=== PATIENT | female | born 1950 ===

== ENCOUNTER 2020-12-17 23:38 | Inpatient (IN) | payer MEDICARE ==
--- NOTE | 2020-12-18 09:58 | Consultation ---
History of Present Illness - Reason for Consult Consult date: 12/18/20 Reason for consult: Bipolar - History of Present Psychiatric Illness Per Admission Note: Patient was in the hospital in October and November at [facility]. She has had multiple psych admissions and continues to argue with her daughter and threaten suicide. This time she also threatened to kill her daughter. Fela Jeffries is a 70y/o female patient who was admitted into the tim-psych unit for suicidal thoughts and homicidal threats toward her daughter. During my evaluation with the patient, she is delusional. She is also labile. She endorses suicidal thoughts without a plan. She shows me healing cuts on both wrists she says where she attempted suicide about a month ago. The patient denies homicidal thoughts. She says her daughter and Kevin Peck are the reason she is admitted into the hospital. She says "she gets on the phone with him and he dominates my daughter's life." She is initially pleasant, but becomes angry talking about this, and says "I don't care if he's rich and famous." The patient then starts sobbing and says "I hurt my family. I won't do this again." She denies any illicit drug use, alcohol or nicotine. She says she has a history of bipolar and anxiety, although she didn't seem quite sure of it. PAST PSYCHIATRIC HISTORY Diagnoses: Bipolar, anxiety Suicide attempts or Self-harm behavior: Yes Prior psychiatric hospitalizations: Yes Substance Abuse history: Denies Previous psychiatric medications tried: Several Outpatient treatment: Yes PAST MEDICAL HISTORY: None reported Family Psychiatric History: None reported or documented SOCIAL HISTORY Marital Status: Living Arrangements: with daughter Employment Status: retired Access to guns/weapons: Denies Education: High school History of Abuse: Denies Legal History: None reported REVIEW OF SYSTEMS Constitutional: Negative for weight loss ENT: Negative for stridor Respiratory: Negative for cough or hemoptysis All other systems reviewed and are negative MENTAL STATUS EXAMINATION General Appearance and Behavior: Age appropriate, good hygiene, wearing appropriate clothes, calm and cooperative, labile Cooperation: cooperative Psychomotor Behavior: Psychomotor normal Mood: depressed Affect and affective range: labile, tearful Thought Process: circumstantial Thought Content: delusions, SI Speech: Normal rate, volume and rhythm Suicidal Ideation: Yes Homicidal Ideation: Denies HI Hallucinations: Denies Delusions: Yes Impulse Control: Impaired Insight and Judgment: Limited insight and judgment Memory: Limited Attention: Limited Orientation: Alert, oriented Assessment and Plan (1)Bipolar Disorder TREATMENT PLAN Patient admitted for inpatient psychiatric evaluation, medication adjustment and close monitoring The patient's behavior, mood, sleep and appetite will be closely monitored. Patient enrolled in individual and group therapeutic sessions and encouraged to attend. Patient provided with a safe and structured environment. Patient's physical health needs will be addressed by the Hospitalist. Hospitalist Consulted Labs including CBC, CMP, Lipid profile and Hemoglobin A1C levels ordered for baseline reference Restarted home meds Decreased Lorazepam 0.5mg daily Hold Olanzapine, to prevent polypharm Social Assessment will be completed and the Marketing Performance Analyst will work with patient and family to ensure a suitable and safe disposition Medication adjustment will be made as clinically indicated Usual Wellness Shinto/Preservation: - Start Trazodone 50 mg po QHS & 50 mg po QHS PRN between 10 PM & 2 AM for insomnia - Start Melatonin 5 mg po QHS to promote circadian rhythm - Start [place]-3 for brain health, reduce impulsivity, and as adjunctive treatment for mood disorder, continue upon discharge given overall benefits. - Start B1 prophylaxis with 200 mg po for 5 days The patient agreed on the treatment plan, understood the risk, benefit, alternative treatment, potential consequence of no treatment, and gave informed consent. Estimated days: 6 Post hospital care: primary care provider, psychiatric provider Medications and Allergies Allergies Allergy/AdvReac Type Severity Reaction Status Date / Time amitriptyline Allergy Anaphylaxis Verified 12/18/20 02:11 doxepin Allergy Anaphylaxis Verified 12/18/20 02:10 aspirin AdvReac Bleeding Verified 12/18/20 02:12 codeine AdvReac Bleeding Verified 12/18/20 02:12 Home Medications Medication Instructions Recorded Confirmed Last Taken Type Acetaminophen [Tylenol] 650 mg PO Q8HR PRN 12/18/20 12/18/20 Unknown History Depakote ER 250 mg PO BID 12/18/20 12/18/20 Unknown History FLUoxetine HCL [PROzac] 40 mg PO BID 12/18/20 12/18/20 Unknown History LORazepam [Lorazepam] 1 mg PO DAILY 12/18/20 12/18/20 Unknown History Levothyroxine [Synthroid] 25 mcg PO QAM 12/18/20 12/18/20 Unknown History OLANZapine [Olanzapine] 10 mg PO HS 12/18/20 12/18/20 Unknown History Pantoprazole [Protonix] 40 mg PO QDAY 12/18/20 12/18/20 Unknown History Phenytoin Sodium Extended 300 mg PO TID 12/18/20 12/18/20 Unknown History Potassium Chloride [K-Dur] 20 meq PO QDAY 12/18/20 12/18/20 Unknown History Rosuvastatin Calcium [Crestor] 20 mg PO HS 12/18/20 12/18/20 Unknown History SUMAtriptan SUCCINATE [Imitrex] 100 mg PO DAILY PRN 12/18/20 12/18/20 Unknown History Ziprasidone [Geodon] 40 mg PO BID 12/18/20 12/18/20 Unknown History carvediloL [Coreg] 6.25 mg PO BID 12/18/20 12/18/20 Unknown History donepeziL [Aricept] 10 mg PO HS 12/18/20 12/18/20 Unknown History hydroCHLOROthiazide 12.5 mg PO DAILY 12/18/20 12/18/20 Unknown History [Hydrochlorothiazide] lisinopriL [Lisinopril] 20 mg PO DAILY 12/18/20 12/18/20 Unknown History Mental Status Exam - Vital signs Last Vital Signs Temp 98.1 F 12/18/20 02:15 Pulse 73 12/18/20 02:15 Resp 20 12/18/20 02:15 BP 153/118 12/18/20 02:15 Pulse Ox 95 12/18/20 02:15 Results All other labs normal.
[2020-12-18] MEDS ORDERED: NON-FORMULARY EACH (Fluoxetine Hcl [Prozac] 40 MG Capsule) PO SCH (10:15)
[2020-12-18 10:31] LABS: Basophils % (Auto) 0.5 % (0.0-1.8); Eosinophils # (Auto) 0.1 K/mm3 (0.0-0.4); Eosinophils % (Auto) 2.5 % (0.0-4.3); Hematocrit 38.1 % (30.3-42.9); Lymphocytes # (Auto) 1.3 K/mm3 (1.2-5.4); Lymphocytes % (Auto) 27.3 % (13.4-35.0); Mean Corpuscular HGB Conc 34 % (30-34); Mean Corpuscular Volume 98 fl (79-97); Monocytes # (Auto) 0.7 K/mm3 (0.0-0.8); Monocytes % (Auto) 15.2 % (0.0-7.3); Platelet Count 152 K/mm3 (140-440); Red Blood Count 3.91 M/mm3 (3.65-5.03); Red Cell Distribution Width 13.1 % (13.2-15.2)
[2020-12-18] MEDS ORDERED: ACETAMINOPHEN 325 MG TAB PO PRN (10:59)
[2020-12-18] MEDS ORDERED: SUMAtriptan SUCCINATE 50 MG TAB PO PRN (11:00)
[2020-12-18] MEDS ORDERED: carvediloL 6.25 MG TAB PO SCH (11:00)
[2020-12-18 11:11] LABS: Alanine Aminotransferase 9 units/L (7-56); Albumin 4.2 g/dL (3.9-5); BUN/Creatinine Ratio 20; Blood Urea Nitrogen 12 mg/dL (7-17); Calcium 10.1 mg/dL (8.4-10.2); HDL Cholesterol 88 mg/dL (40-59); Hemolysis Index 10; LDL Cholesterol,Direct 85 mg/dL (50-130)
[2020-12-18] MEDS: DIVALPROEX ER 250 MG TAB PO SCH ×2 (13:02→21:24)
[2020-12-18] MEDS: ZIPRASIDONE 40 MG CAP PO SCH ×2 (13:02→21:24)
[2020-12-18] MEDS: FLUoxetine 20 MG CAP PO SCH ×2 (13:03→21:24)
[2020-12-18] MEDS: PANTOPRAZOLE 40 MG TAB PO SCH (13:04)
[2020-12-18] MEDS: POTASSIUM CHLORIDE ER 20 MEQ TAB PO SCH (13:04)
[2020-12-18] MEDS: carvediloL 3.125 MG TAB PO SCH ×2 (13:06→21:24)
[2020-12-18] MEDS: LISINOPRIL 20 MG TAB PO SCH (13:07)
[2020-12-18] MEDS: hydroCHLOROthiazide 12.5 MG CAP PO SCH (13:14)
[2020-12-18] MEDS ORDERED: PHENYTOIN SODIUM 300 MG PO SCH (14:00)
[2020-12-18] MEDS: PHENYTOIN 100 MG CAPSULE.ER PO SCH ×2 (14:45→21:23)
[2020-12-18] MEDS: DONEPEZIL 10 MG TAB PO SCH (21:23)
[2020-12-18] MEDS ORDERED: NON-FORMULARY EACH (Rosuvastatin Calcium [Crestor] 20 MG Tablet) PO SCH (22:00)
[2020-12-18] MEDS ORDERED: LORazepam 0.5 MG TAB PO SCH (22:00)
[2020-12-19] MEDS: PHENYTOIN 100 MG CAPSULE.ER PO SCH ×3 (05:25→21:14)
[2020-12-19] MEDS: LEVOTHYROXINE 25 MCG TAB PO SCH (05:25)
--- NOTE | 2020-12-19 09:50 | Progress Note ---
Subjective Date of service: 12/19/20 Principal diagnosis: Bipolar Disorder Subjective Comment: The patient was seen today. She appears to be delusional. She says she's doing good and slept good. The patient starts laughing out and says she spoke with her daughter yesterday who "talked too long." She says "my daughter is obsessed with Kevin Garcia. The patient says "he's worth 200 million dollars." She then laughs again. She denies SI/HI or hallucinations. REVIEW OF SYSTEMS Constitutional: Negative for weight loss ENT: Negative for stridor Respiratory: Negative for cough or hemoptysis All other systems reviewed and are negative MENTAL STATUS EXAMINATION General Appearance and Behavior: Age appropriate, good hygiene, wearing appropriate clothes, calm and cooperative, labile Cooperation: cooperative Psychomotor Behavior: Psychomotor normal Mood: depressed Affect and affective range: labile, tearful Thought Process: circumstantial Thought Content: delusions, SI Speech: Normal rate, volume and rhythm Suicidal Ideation: Yes Homicidal Ideation: Denies HI Hallucinations: Denies Delusions: Yes Impulse Control: Impaired Insight and Judgment: Limited insight and judgment Memory: Limited Attention: Limited Orientation: Alert, oriented Assessment and Plan (1)Bipolar Disorder TREATMENT PLAN Patient admitted for inpatient psychiatric evaluation, medication adjustment and close monitoring The patient's behavior, mood, sleep and appetite will be closely monitored. Patient enrolled in individual and group therapeutic sessions and encouraged to attend. Patient provided with a safe and structured environment. Patient's physical health needs will be addressed by the Hospitalist. Hospitalist Consulted Labs including CBC, CMP, Lipid profile and Hemoglobin A1C levels ordered for baseline reference Continue meds Social Assessment will be completed and the Heel Emery Buffer will work with patient and family to ensure a suitable and safe disposition Medication adjustment will be made as clinically indicated Usual Wellness Sikhism/Preservation: - Start Trazodone 50 mg po QHS & 50 mg po QHS PRN between 10 PM & 2 AM for inso mnia - Start Melatonin 5 mg po QHS to promote circadian rhythm - Start [place]-3 for brain health, reduce impulsivity, and as adjunctive treatment for mood disorder, continue upon discharge given overall benefits. - Start B1 prophylaxis with 200 mg po for 5 days The patient agreed on the treatment plan, understood the risk, benefit, alternative treatment, potential consequence of no treatment, and gave informed consent. Estimated days: 6 Post hospital care: primary care provider, psychiatric provider Medications and Allergies Allergies Allergy/AdvReac Type Severity Reaction Status Date / Time amitriptyline Allergy Anaphylaxis Verified 12/18/20 02:11 doxepin Allergy Anaphylaxis Verified 12/18/20 02:10 aspirin AdvReac Bleeding Verified 12/18/20 02:12 codeine AdvReac Bleeding Verified 12/18/20 02:12 Home Medications Medication Instructions Recorded Confirmed Last Taken Type Acetaminophen [Tylenol] 650 mg PO Q8HR PRN 12/18/20 12/18/20 Unknown History Depakote ER 250 mg PO BID 12/18/20 12/18/20 Unknown History FLUoxetine HCL [PROzac] 40 mg PO BID 12/18/20 12/18/20 Unknown History LORazepam [Lorazepam] 1 mg PO DAILY 12/18/20 12/18/20 Unknown History Levothyroxine [Synthroid] 25 mcg PO QAM 12/18/20 12/18/20 Unknown History OLANZapine [Olanzapine] 10 mg PO HS 12/18/20 12/18/20 Unknown History Pantoprazole [Protonix] 40 mg PO QDAY 12/18/20 12/18/20 Unknown History Phenytoin Sodium Extended 300 mg PO TID 12/18/20 12/18/20 Unknown History Potassium Chloride [K-Dur] 20 meq PO QDAY 12/18/20 12/18/20 Unknown History Rosuvastatin Calcium [Crestor] 20 mg PO HS 12/18/20 12/18/20 Unknown History SUMAtriptan SUCCINATE [Imitrex] 100 mg PO DAILY PRN 12/18/20 12/18/20 Unknown History Ziprasidone [Geodon] 40 mg PO BID 12/18/20 12/18/20 Unknown History carvediloL [Coreg] 6.25 mg PO BID 12/18/20 12/18/20 Unknown History donepeziL [Aricept] 10 mg PO HS 12/18/20 12/18/20 Unknown History hydroCHLOROthiazide 12.5 mg PO DAILY 12/18/20 12/18/20 Unknown History [Hydrochlorothiazide] lisinopriL [Lisinopril] 20 mg PO DAILY 12/18/20 12/18/20 Unknown History Active Meds: Active Medications Acetaminophen (Acetaminophen 325 Mg Tab) 650 mg PO Q8H PRN PRN Reason: Pain, Moderate Atorvastatin Calcium (Atorvastatin 40 Mg Tab) 40 mg PO QHS [facility] Last Admin: 12/18/20 21:24 Dose: 40 mg Documented by: Carvedilol (Carvedilol 6.25 Mg Tab) 6.25 mg PO BID [facility] Divalproex Sodium (Divalproex Er 250 Mg Tab) 250 mg PO BID [facility] Last Admin: 12/18/20 21:24 Dose: 250 mg Documented by: Donepezil HCl (Donepezil 10 Mg Tab) 10 mg PO HS [facility] Last Admin: 12/18/20 21:23 Dose: 10 mg Documented by: Fluoxetine HCl (Fluoxetine 20 Mg Cap) 40 mg PO BID [facility] Last Admin: 12/18/20 21:24 Dose: 40 mg Documented by: Hydrochlorothiazide (Hydrochlorothiazide 12.5 Mg Cap) 12.5 mg PO DAILY [facility] Last Admin: 12/18/20 13:14 Dose: 12.5 mg Documented by: Levothyroxine Sodium (Levothyroxine 25 Mcg Tab) 25 mcg PO QAM@0600 [facility] Last Admin: 12/19/20 05:25 Dose: 25 mcg Documented by: Lisinopril (Lisinopril 20 Mg Tab) 20 mg PO DAILY [facility] Last Admin: 12/18/20 13:07 Dose: Not Given Documented by: Lorazepam (Lorazepam 0.5 Mg Tab) 0.5 mg PO DAILY [facility] Pantoprazole Sodium (Pantoprazole 40 Mg Tab) 40 mg PO QDAY [facility] Last Admin: 12/18/20 13:04 Dose: 40 mg Documented by: Phenytoin (Phenytoin 100 Mg Capsule.Er) 300 mg PO Q8HR [facility] Last Admin: 12/19/20 05:25 Dose: 300 mg Documented by: Potassium Chloride (Potassium Chloride Er 20 Meq Tab) 20 meq PO QDAY [facility] Last Admin: 12/18/20 13:04 Dose: 20 meq Documented by: Sumatriptan Succinate (Sumatriptan Succinate 50 Mg Tab) 100 mg PO DAILY PRN PRN Reason: Headache Ziprasidone (Ziprasidone 40 Mg Cap) 40 mg PO BID [facility] Last Admin: 12/18/20 21:24 Dose: 40 mg Documented by: Results - Results Labs/Vitals: Laboratory Last Values WBC 4.8 K/mm3 (4.5-11.0) 12/18/20 10:00 RBC 3.91 M/mm3 (3.65-5.03) 12/18/20 10:00 Hgb 13.0 gm/dl (10.1-14.3) 12/18/20 10:00 Hct 38.1 % (30.3-42.9) 12/18/20 10:00 MCV 98 fl (79-97) H 12/18/20 10:00 MCH 33 pg (28-32) H 12/18/20 10:00 MCHC 34 % (30-34) 12/18/20 10:00 RDW 13.1 % (13.2-15.2) L 12/18/20 10:00 Plt Count 152 K/mm3 (140-440) 12/18/20 10:00 Lymph % (Auto) 27.3 % (13.4-35.0) 12/18/20 10:00 [place] % (Auto) 15.2 % (0.0-7.3) H 12/18/20 10:00 Eos % (Auto) 2.5 % (0.0-4.3) 12/18/20 10:00 Baso % (Auto) 0.5 % (0.0-1.8) 12/18/20 10:00 Lymph # (Auto) 1.3 K/mm3 (1.2-5.4) 12/18/20 10:00 [place] # (Auto) 0.7 K/mm3 (0.0-0.8) 12/18/20 10:00 Eos # (Auto) 0.1 K/mm3 (0.0-0.4) 12/18/20 10:00 Baso # (Auto) 0.0 K/mm3 (0.0-0.1) 12/18/20 10:00 Seg Neutrophils % 54.5 % (40.0-70.0) 12/18/20 10:00 Seg Neutrophils # 2.6 K/mm3 (1.8-7.7) 12/18/20 10:00 Sodium 135 mmol/L (137-145) L 12/18/20 10:00 Potassium 3.6 mmol/L (3.6-5.0) 12/18/20 10:00 Chloride 97.6 mmol/L (98-107) L 12/18/20 10:00 Carbon Dioxide 26 mmol/L (22-30) 12/18/20 10:00 Anion Gap 15 mmol/L 12/18/20 10:00 BUN 12 mg/dL (7-17) 12/18/20 10:00 Creatinine 0.6 mg/dL (0.6-1.2) 12/18/20 10:00 Estimated GFR > 60 ml/min 12/18/20 10:00 BUN/Creatinine Ratio 20 % 12/18/20 10:00 Glucose 108 mg/dL (65-100) H 12/18/20 10:00 POC Glucose 97 mg/dL (70-105) 12/18/20 16:11 Hemoglobin A1c 5.0 % (4-6) 12/18/20 10:00 Calcium 10.1 mg/dL (8.4-10.2) 12/18/20 10:00 Total Bilirubin 0.30 mg/dL (0.1-1.2) 12/18/20 10:00 AST 18 units/L (5-40) 12/18/20 10:00 ALT 9 units/L (7-56) 12/18/20 10:00 Alkaline Phosphatase 83 units/L (35-129) 12/18/20 10:00 Total Protein 7.4 g/dL (6.3-8.2) 12/18/20 10:00 Albumin 4.2 g/dL (3.9-5) 12/18/20 10:00 Albumin/Globulin Ratio 1.3 % 12/18/20 10:00 Triglycerides 90 mg/dL (2-149) 12/18/20 10:00 Cholesterol 176 mg/dL (50-199) 12/18/20 10:00 LDL Cholesterol Direct 85 mg/dL (50-130) 12/18/20 10:00 HDL Cholesterol 88 mg/dL (40-59) H 12/18/20 10:00 Cholesterol/HDL Ratio 2.00 % 12/18/20 10:00 TSH 1.440 mlU/mL (0.270-4.200) 12/18/20 10:00 Phenytoin 24.2 ug/mL (10.0-20.0) H 12/18/20 10:00 Valproic Acid 10.7 ug/mL (50-100) L 12/18/20 10:00 Last Vital Signs Temp 97.7 F 12/18/20 18:48 Pulse 80 09/11/21 21:24 Resp 16 12/18/20 18:48 BP 130/61 12/18/20 21:24 Pulse Ox 99 12/18/20 18:48
[2020-12-19] MEDS ORDERED: LORazepam 0.5 MG TAB PO SCH (10:00)
[2020-12-19] MEDS ORDERED: carvediloL 6.25 MG TAB PO SCH (10:00)
[2020-12-19] MEDS: PANTOPRAZOLE 40 MG TAB PO SCH (10:09)
[2020-12-19] MEDS: DIVALPROEX ER 250 MG TAB PO SCH ×2 (10:09→21:13)
[2020-12-19] MEDS: hydroCHLOROthiazide 12.5 MG CAP PO SCH (10:09)
[2020-12-19] MEDS: FLUoxetine 20 MG CAP PO SCH ×2 (10:10→21:13)
[2020-12-19] MEDS: ZIPRASIDONE 40 MG CAP PO SCH ×2 (10:10→21:13)
[2020-12-19] MEDS: POTASSIUM CHLORIDE ER 20 MEQ TAB PO SCH (10:10)
[2020-12-19] MEDS: LISINOPRIL 20 MG TAB PO SCH (10:10)
[2020-12-19] MEDS: LORazepam 0.5 MG TAB PO SCH (14:15)
[2020-12-19] MEDS: carvediloL 3.125 MG TAB PO SCH ×2 (14:25→21:14)
--- NOTE | 2020-12-19 15:13 | Consultation ---
History of Present Illness - Reason for Consult Consult date: 12/19/20 Medical management - History of Present Illness Fela Jeffries is a 70y/o female with history of bipolar disorder, hypertension hyperlipidemia, GERD and hypothyroidism who was admitted into the tim-psych unit for suicidal thoughts and homicidal threats toward her daughter. Medicine service has been requested to further evaluate the patient for any medical needs. Patient currently denies any chest pain short of breath abdominal pain nausea vomiting diarrhea or any lower extremity swelling. Her only complaint is that she has a cracking lips and requesting some Vaseline. PAST PSYCHIATRIC HISTORY: Bipolar, anxiety PAST MEDICAL HISTORY: Hypertension hyperlipidemia, hypothyroidism and GERD Family Psychiatric History: None reported or documented SOCIAL HISTORY: , living with daughter REVIEW OF SYSTEMS Constitutional: no fever, no chills, no weight loss Ears, eyes, nose, mouth and throat: no nasal congestion, no nasal discharge, no sinus pressure, no vision change, no red eye. Neck: No neck pain or rigidity. Cardiovascular: No chest pain, no orthopnea, no palpitations, no leg swelling Respiratory: No shortness of breath, no cough, no congestion, no wheezing Gastrointestinal: no abdominal pain, no nausea, no vomiting Genitourinary : no dysuria, no hematuria Musculoskeletal: no joint swelling or muscle ache Integumentary: no rash, no pruritis Neurological: no parathesias, no numbness, no tingling Endocrine: no cold or heat intolerance, no polyuria or polydipsia Hematologic/Lymphatic: no easy bruising, no easy bleeding, no gland swelling Allergic/Immunologic: no urticaria, no angioedema. Physical exam: GENERAL: well-developed and morbidly obese white female lying on bed appeared to be in no discomfort. HEENT: Normocephalic. Atraumatic. No conjunctival congestion or icterus. Patient has very dry cracking lips. NECK: Supple. Trachea midline. CHEST/LUNGS: Clear to auscultated bilaterally, breathing nonlabored. No wheezes crackles or rhonchi. HEART/CARDIOVASCULAR: Regular in rate and rhythm. S1 and S2 positive. ABDOMEN: Abdomen is soft, nontender. Patient has normal bowel sounds. SKIN: There is no rash. Warm and dry. NEURO: No focal motor deficit. Follows command. MUSCULOSKELETAL: No joint effusion or tenderness. EXTRIMITY: No edema, no cyanosis or clubbing. PSYCH: Cooperative. Assessment and plan: Bipolar Disorder, management per primary Other chronic medical issues: Hypertension Hyperlipidemia Hypothyroidism GERD Morbid obesity -Continue current home regimen, continue to monitor vitals and follow clinically We will also order Vaseline for dry lips. Diet and exercise recommendation as outpatient when clinically more appropriate Please call us back with any questions or concerns Medications and Allergies Allergies Allergy/AdvReac Type Severity Reaction Status Date / Time amitriptyline Allergy Anaphylaxis Verified 12/18/20 02:11 doxepin Allergy Anaphylaxis Verified 12/18/20 02:10 aspirin AdvReac Bleeding Verified 12/18/20 02:12 codeine AdvReac Bleeding Verified 12/18/20 02:12 Home Medications Medication Instructions Recorded Confirmed Last Taken Type Acetaminophen [Tylenol] 650 mg PO Q8HR PRN 12/18/20 12/18/20 Unknown History Depakote ER 250 mg PO BID 12/18/20 12/18/20 Unknown History FLUoxetine HCL [PROzac] 40 mg PO BID 12/18/20 12/18/20 Unknown History LORazepam [Lorazepam] 1 mg PO DAILY 12/18/20 12/18/20 Unknown History Levothyroxine [Synthroid] 25 mcg PO QAM 12/18/20 12/18/20 Unknown History OLANZapine [Olanzapine] 10 mg PO HS 12/18/20 12/18/20 Unknown History Pantoprazole [Protonix] 40 mg PO QDAY 12/18/20 12/18/20 Unknown History Phenytoin Sodium Extended 300 mg PO TID 12/18/20 12/18/20 Unknown History Potassium Chloride [K-Dur] 20 meq PO QDAY 12/18/20 12/18/20 Unknown History Rosuvastatin Calcium [Crestor] 20 mg PO HS 12/18/20 12/18/20 Unknown History SUMAtriptan SUCCINATE [Imitrex] 100 mg PO DAILY PRN 12/18/20 12/18/20 Unknown History Ziprasidone [Geodon] 40 mg PO BID 12/18/20 12/18/20 Unknown History carvediloL [Coreg] 6.25 mg PO BID 12/18/20 12/18/20 Unknown History donepeziL [Aricept] 10 mg PO HS 12/18/20 12/18/20 Unknown History hydroCHLOROthiazide 12.5 mg PO DAILY 12/18/20 12/18/20 Unknown History [Hydrochlorothiazide] lisinopriL [Lisinopril] 20 mg PO DAILY 12/18/20 12/18/20 Unknown History Active Meds: Active Medications Acetaminophen (Acetaminophen 325 Mg Tab) 650 mg PO Q8H PRN PRN Reason: Pain, Moderate Atorvastatin Calcium (Atorvastatin 40 Mg Tab) 40 mg PO QHS [facility] Last Admin: 12/18/20 21:24 Dose: 40 mg Documented by: Carvedilol (Carvedilol 3.125 Mg Tab) 6.25 mg PO BID [facility] Last Admin: 12/19/20 14:25 Dose: 6.25 mg Documented by: Divalproex Sodium (Divalproex Er 250 Mg Tab) 250 mg PO BID [facility] Last Admin: 12/19/20 10:09 Dose: 250 mg Documented by: Donepezil HCl (Donepezil 10 Mg Tab) 10 mg PO HS [facility] Last Admin: 12/18/20 21:23 Dose: 10 mg Documented by: Fluoxetine HCl (Fluoxetine 20 Mg Cap) 40 mg PO BID [facility] Last Admin: 12/19/20 10:10 Dose: 40 mg Documented by: Hydrochlorothiazide (Hydrochlorothiazide 12.5 Mg Cap) 12.5 mg PO DAILY [facility] Last Admin: 12/19/20 10:09 Dose: 12.5 mg Documented by: Levothyroxine Sodium (Levothyroxine 25 Mcg Tab) 25 mcg PO QAM@0600 [facility] Last Admin: 12/19/20 05:25 Dose: 25 mcg Documented by: Lisinopril (Lisinopril 20 Mg Tab) 20 mg PO DAILY [facility] Last Admin: 12/19/20 10:10 Dose: 20 mg Documented by: Lorazepam (Lorazepam 0.5 Mg Tab) 0.5 mg PO 1500 [facility] Last Admin: 12/19/20 14:15 Dose: 0.5 mg Documented by: Pantoprazole Sodium (Pantoprazole 40 Mg Tab) 40 mg PO QDAY [facility] Last Admin: 12/19/20 10:09 Dose: 40 mg Documented by: Phenytoin (Phenytoin 100 Mg Capsule.Er) 300 mg PO Q8HR [facility] Last Admin: 12/19/20 14:14 Dose: 300 mg Documented by: Potassium Chloride (Potassium Chloride Er 20 Meq Tab) 20 meq PO QDAY [facility] Last Admin: 12/19/20 10:10 Dose: 20 meq Documented by: Sumatriptan Succinate (Sumatriptan Succinate 50 Mg Tab) 100 mg PO DAILY PRN PRN Reason: Headache Ziprasidone (Ziprasidone 40 Mg Cap) 40 mg PO BID [facility] Last Admin: 12/19/20 10:10 Dose: 40 mg Documented by: Exam - Constitutional Vitals: Temp Pulse Resp BP Pulse Ox 98.6 F 70 18 130/61 98 12/19/20 07:21 12/19/20 14:25 12/19/20 07:21 12/19/20 14:25 12/19/20 07:21 Results - Labs CBC & Chem 7: 12/18/20 10:00 12/18/20 10:00
[2020-12-19] MEDS: DONEPEZIL 10 MG TAB PO SCH (21:13)
[2020-12-19] MEDS: LIP THERAPY VASELINE TP PRN (21:30)
[2020-12-20] MEDS: PHENYTOIN 100 MG CAPSULE.ER PO SCH ×3 (05:52→21:17)
[2020-12-20] MEDS: LEVOTHYROXINE 25 MCG TAB PO SCH (05:52)
--- NOTE | 2020-12-20 08:15 | Progress Note ---
Subjective Date of service: 12/20/20 Principal diagnosis: Bipolar Disorder Subjective Comment: Per Nurse Note: Pt. is still delusional about her daughter being obsessed about Kevin Garcia. Sometimes pt. is sad, but on the most part happy today. Pt. is unsteady on her feet, but she made a few attempts to ambulate without help. Pt. reminded to call for help when she wants to stand up. She c/o cracked lips, Dr. Gonsales was here to see her and she said she will put in order for something for her lips The patient was seen today. The patient is laughing and says she had a "wet night." She says "I was peeing all night." She then laughs out loud. The patient says she's have this problem and home. She denies SI/HI. She says "I'm happy to be alive." The patient denies hallucinations of any kind. Reason for continued inpatient treatment: The nurse reports the patient being delusional and obsessive at times. Also the patient has labile moods between sad and happy. REVIEW OF SYSTEMS Constitutional: Negative for weight loss ENT: Negative for stridor Respiratory: Negative for cough or hemoptysis All other systems reviewed and are negative MENTAL STATUS EXAMINATION General Appearance and Behavior: Age appropriate, good hygiene, wearing appropriate clothes, calm and cooperative, labile Cooperation: cooperative Psychomotor Behavior: Psychomotor normal Mood: depressed Affect and affective range: labile, tearful Thought Process: circumstantial Thought Content: delusions Speech: Normal rate, volume and rhythm Suicidal Ideation: Denies Homicidal Ideation: Denies HI Hallucinations: Denies Delusions: Yes Impulse Control: Impaired Insight and Judgment: Limited insight and judgment Memory: Limited Attention: Limited Orientation: Alert, oriented Assessment and Plan (1)Bipolar Disorder TREATMENT PLAN Patient admitted for inpatient psychiatric evaluation, medication adjustment and close monitoring The patient's behavior, mood, sleep and appetite will be closely monitored. Patient enrolled in individual and group therapeutic sessions and encouraged to attend. Patient provided with a safe and structured environment. Patient's physical health needs will be addressed by the Hospitalist. Hospitalist Consulted Labs including CBC, CMP, Lipid profile and Hemoglobin A1C levels ordered for baseline reference Valproic level Social Assessment will be completed and the Social Media Specialist will work with patient and family to ensure a suitable and safe disposition Medication adjustment will be made as clinically indicated Increase Depakote DR 250mg TID Usual Wellness [facility]/Preservation: - Start Trazodone 50 mg po QHS & 50 mg po QHS PRN between 10 PM & 2 AM for insomnia - Start Melatonin 5 mg po QHS to promote circadian rhythm - Start [place]-3 for brain health, reduce impulsivity, and as adjunctive treatment for mood disorder, continue upon discharge given overall benefits. - Start B1 prophylaxis with 200 mg po for 5 days The patient agreed on the treatment plan, understood the risk, benefit, alternative treatment, potential consequence of no treatment, and gave informed consent. Estimated days: 4 Post hospital care: primary care provider, psychiatric provider Medications and Allergies Allergies Allergy/AdvReac Type Severity Reaction Status Date / Time amitriptyline Allergy Anaphylaxis Verified 12/18/20 02:11 doxepin Allergy Anaphylaxis Verified 12/18/20 02:10 aspirin AdvReac Bleeding Verified 12/18/20 02:12 codeine AdvReac Bleeding Verified 12/18/20 02:12 Home Medications Medication Instructions Recorded Confirmed Last Taken Type Acetaminophen [Tylenol] 650 mg PO Q8HR PRN 12/18/20 12/18/20 Unknown History Depakote ER 250 mg PO BID 12/18/20 12/18/20 Unknown History FLUoxetine HCL [PROzac] 40 mg PO BID 12/18/20 12/18/20 Unknown History LORazepam [Lorazepam] 1 mg PO DAILY 12/18/20 12/18/20 Unknown History Levothyroxine [Synthroid] 25 mcg PO QAM 12/18/20 12/18/20 Unknown History OLANZapine [Olanzapine] 10 mg PO HS 12/18/20 12/18/20 Unknown History Pantoprazole [Protonix] 40 mg PO QDAY 12/18/20 12/18/20 Unknown History Phenytoin Sodium Extended 300 mg PO TID 12/18/20 12/18/20 Unknown History Potassium Chloride [K-Dur] 20 meq PO QDAY 12/18/20 12/18/20 Unknown History Rosuvastatin Calcium [Crestor] 20 mg PO HS 12/18/20 12/18/20 Unknown History SUMAtriptan SUCCINATE [Imitrex] 100 mg PO DAILY PRN 12/18/20 12/18/20 Unknown H istory Ziprasidone [Geodon] 40 mg PO BID 12/18/20 12/18/20 Unknown History carvediloL [Coreg] 6.25 mg PO BID 12/18/20 12/18/20 Unknown History donepeziL [Aricept] 10 mg PO HS 12/18/20 12/18/20 Unknown History hydroCHLOROthiazide 12.5 mg PO DAILY 12/18/20 12/18/20 Unknown History [Hydrochlorothiazide] lisinopriL [Lisinopril] 20 mg PO DAILY 12/18/20 12/18/20 Unknown History Active Meds: Active Medications Acetaminophen (Acetaminophen 325 Mg Tab) 650 mg PO Q8H PRN PRN Reason: Pain, Moderate Atorvastatin Calcium (Atorvastatin 40 Mg Tab) 40 mg PO QHS [facility] Last Admin: 12/19/20 21:13 Dose: 40 mg Documented by: Carvedilol (Carvedilol 3.125 Mg Tab) 6.25 mg PO BID [facility] Last Admin: 12/19/20 21:14 Dose: 6.25 mg Documented by: Divalproex Sodium (Divalproex Er 250 Mg Tab) 250 mg PO BID [facility] Last Admin: 12/19/20 21:13 Dose: 250 mg Documented by: Donepezil HCl (Donepezil 10 Mg Tab) 10 mg PO [facility] Last Admin: 12/19/20 21:13 Dose: 10 mg Documented by: Fluoxetine HCl (Fluoxetine 20 Mg Cap) 40 mg PO BID [facility] Last Admin: 12/19/20 21:13 Dose: 40 mg Documented by: Hydrochlorothiazide (Hydrochlorothiazide 12.5 Mg Cap) 12.5 mg PO DAILY [facility] Last Admin: 12/19/20 10:09 Dose: 12.5 mg Documented by: Hydrophilic Ointment (Lip Therapy Vaseline) 1 applic TP DIRECT PRN PRN Reason: Dry Lips Last Admin: 12/19/20 21:30 Dose: 1 applic Documented by: Levothyroxine Sodium (Levothyroxine 25 Mcg Tab) 25 mcg PO QAM@0600 [facility] Last Admin: 12/20/20 05:52 Dose: 25 mcg Documented by: Lisinopril (Lisinopril 20 Mg Tab) 20 mg PO DAILY [facility] Last Admin: 12/19/20 10:10 Dose: 20 mg Documented by: Lorazepam (Lorazepam 0.5 Mg Tab) 0.5 mg PO 1500 [facility] Last Admin: 12/19/20 14:15 Dose: 0.5 mg Documented by: Pantoprazole Sodium (Pantoprazole 40 Mg Tab) 40 mg PO QDAY [facility] Last Admin: 12/19/20 10:09 Dose: 40 mg Documented by: Phenytoin (Phenytoin 100 Mg Capsule.Er) 300 mg PO Q8HR [facility] Last Admin: 12/20/20 05:52 Dose: 300 mg Documented by: Potassium Chloride (Potassium Chloride Er 20 Meq Tab) 20 meq PO QDAY [facility] Last Admin: 12/19/20 10:10 Dose: 20 meq Documented by: Sumatriptan Succinate (Sumatriptan Succinate 50 Mg Tab) 100 mg PO DAILY PRN PRN Reason: Headache Ziprasidone (Ziprasidone 40 Mg Cap) 40 mg PO BID [facility] Last Admin: 12/19/20 21:13 Dose: 40 mg Documented by: Results - Results Labs/Vitals: Laboratory Last Values WBC 4.8 K/mm3 (4.5-11.0) 12/18/20 10:00 RBC 3.91 M/mm3 (3.65-5.03) 12/18/20 10:00 Hgb 13.0 gm/dl (10.1-14.3) 12/18/20 10:00 Hct 38.1 % (30.3-42.9) 12/18/20 10:00 MCV 98 fl (79-97) H 12/18/20 10:00 MCH 33 pg (28-32) H 12/18/20 10:00 MCHC 34 % (30-34) 12/18/20 10:00 RDW 13.1 % (13.2-15.2) L 12/18/20 10:00 Plt Count 152 K/mm3 (140-440) 12/18/20 10:00 Lymph % (Auto) 27.3 % (13.4-35.0) 12/18/20 10:00 [place] % (Auto) 15.2 % (0.0-7.3) H 12/18/20 10:00 Eos % (Auto) 2.5 % (0.0-4.3) 12/18/20 10:00 Baso % (Auto) 0.5 % (0.0-1.8) 12/18/20 10:00 Lymph # (Auto) 1.3 K/mm3 (1.2-5.4) 12/18/20 10:00 [place] # (Auto) 0.7 K/mm3 (0.0-0.8) 12/18/20 10:00 Eos # (Auto) 0.1 K/mm3 (0.0-0.4) 12/18/20 10:00 Baso # (Auto) 0.0 K/mm3 (0.0-0.1) 12/18/20 10:00 Seg Neutrophils % 54.5 % (40.0-70.0) 12/18/20 10:00 Seg Neutrophils # 2.6 K/mm3 (1.8-7.7) 12/18/20 10:00 Sodium 135 mmol/L (137-145) L 12/18/20 10:00 Potassium 3.6 mmol/L (3.6-5.0) 12/18/20 10:00 Chloride 97.6 mmol/L (98-107) L 12/18/20 10:00 Carbon Dioxide 26 mmol/L (22-30) 12/18/20 10:00 Anion Gap 15 mmol/L 12/18/20 10:00 BUN 12 mg/dL (7-17) 12/18/20 10:00 Creatinine 0.6 mg/dL (0.6-1.2) 12/18/20 10:00 Estimated GFR > 60 ml/min 12/18/20 10:00 BUN/Creatinine Ratio 20 % 12/18/20 10:00 Glucose 108 mg/dL (65-100) H 12/18/20 10:00 POC Glucose 97 mg/dL (70-105) 12/18/20 16:11 Hemoglobin A1c 5.0 % (4-6) 12/18/20 10:00 Calcium 10.1 mg/dL (8.4-10.2) 12/18/20 10:00 Total Bilirubin 0.30 mg/dL (0.1-1.2) 12/18/20 10:00 AST 18 units/L (5-40) 12/18/20 10:00 ALT 9 units/L (7-56) 12/18/20 10:00 Alkaline Phosphatase 83 units/L (35-129) 12/18/20 10:00 Total Protein 7.4 g/dL (6.3-8.2) 12/18/20 10:00 Albumin 4.2 g/dL (3.9-5) 12/18/20 10:00 Albumin/Globulin Ratio 1.3 % 12/18/20 10:00 Triglycerides 90 mg/dL (2-149) 12/18/20 10:00 Cholesterol 176 mg/dL (50-199) 12/18/20 10:00 LDL Cholesterol Direct 85 mg/dL (50-130) 12/18/20 10:00 HDL Cholesterol 88 mg/dL (40-59) H 12/18/20 10:00 Cholesterol/HDL Ratio 2.00 % 12/18/20 10:00 TSH 1.440 mlU/mL (0.270-4.200) 12/18/20 10:00 Phenytoin 24.2 ug/mL (10.0-20.0) H 12/18/20 10:00 Valproic Acid 10.7 ug/mL (50-100) L 12/18/20 10:00 Last Vital Signs Temp 98.6 F 12/19/20 20:00 Pulse 72 12/19/20 21:14 Resp 16 12/19/20 20:00 BP 112/63 12/19/20 21:14 Pulse Ox 100 12/19/20 20:00
[2020-12-20] MEDS: ZIPRASIDONE 40 MG CAP PO SCH ×2 (09:36→21:17)
[2020-12-20] MEDS: PANTOPRAZOLE 40 MG TAB PO SCH (09:36)
[2020-12-20] MEDS: DIVALPROEX ER 250 MG TAB PO SCH ×3 (09:36→21:09)
[2020-12-20] MEDS: FLUoxetine 20 MG CAP PO SCH ×2 (09:36→21:18)
[2020-12-20] MEDS: POTASSIUM CHLORIDE ER 20 MEQ TAB PO SCH (09:36)
[2020-12-20] MEDS: hydroCHLOROthiazide 12.5 MG CAP PO SCH (09:37)
[2020-12-20] MEDS: carvediloL 3.125 MG TAB PO SCH ×2 (09:38→21:10)
[2020-12-20] MEDS: LISINOPRIL 20 MG TAB PO SCH (09:38)
[2020-12-20] MEDS: LORazepam 0.5 MG TAB PO SCH (14:27)
[2020-12-20] MEDS: LIP THERAPY VASELINE TP PRN (21:07)
[2020-12-20] MEDS: DONEPEZIL 10 MG TAB PO SCH (21:10)
[2020-12-21] MEDS: PHENYTOIN 100 MG CAPSULE.ER PO SCH ×3 (05:32→21:22)
[2020-12-21] MEDS: LEVOTHYROXINE 25 MCG TAB PO SCH (05:33)
--- NOTE | 2020-12-21 08:40 | Progress Note ---
Subjective Date of service: 12/21/20 Principal diagnosis: Bipolar Disorder Subjective Comment: Per Nurse Note: Last evening the patient spent in the activity room interacting appropriately with peers. She denies si/hi/ah/vh but patient is observed standing in her room looking at the candelario as if she is interacting with them. She affect is superficially bright. The patient focuses on the delusion that her daughter is involved with Kevin Sorto. The patient's appetite is good and she is medication compliant. Overnight the patient rested until 4 am. She woke and could not return to sleep. She slept a total of 5 hours. Will continue to monitor patient for safety. The patient was seen today. She has a bright affect and elevated mood. She says she's doing "wonderful and excellent." She denies SI/HI or hallucinations, but nursing staff reports the patient appeared to be interacting with the candelario. Reason for continued inpatient treatment: The nurse reports the patient being delusional and obsessive at times. Also the patient has labile moods between sad and happy. REVIEW OF SYSTEMS Constitutional: Negative for weight loss ENT: Negative for stridor Respiratory: Negative for cough or hemoptysis All other systems reviewed and are negative MENTAL STATUS EXAMINATION General Appearance and Behavior: Age appropriate, good hygiene, wearing appropriate clothes, calm and cooperative, labile Cooperation: cooperative Psychomotor Behavior: Psychomotor normal Mood: depressed Affect and affective range: labile, tearful Thought Process: circumstantial Thought Content: delusions Speech: Normal rate, volume and rhythm Suicidal Ideation: Denies Homicidal Ideation: Denies HI Hallucinations: Denies Delusions: Yes Impulse Control: Impaired Insight and Judgment: Limited insight and judgment Memory: Limited Attention: Limited Orientation: Alert, oriented Assessment and Plan (1)Bipolar Disorder TREATMENT PLAN Patient admitted for inpatient psychiatric evaluation, medication adjustment and close monitoring The patient's behavior, mood, sleep and appetite will be closely monitored. Patient enrolled in individual and group therapeutic sessions and encouraged to attend. Patient provided with a safe and structured environment. Patient's physical health needs will be addressed by the Hospitalist. Hospitalist Consulted Labs including CBC, CMP, Lipid profile and Hemoglobin A1C levels ordered for baseline reference Valproic level Social Assessment will be completed and the Security Developer will work with pa tient and family to ensure a suitable and safe disposition Medication adjustment will be made as clinically indicated Increase Depakote DR 500mg BID Usual Wellness [facility]/Preservation: - Start Trazodone 50 mg po QHS & 50 mg po QHS PRN between 10 PM & 2 AM for insomnia - Start Melatonin 5 mg po QHS to promote circadian rhythm - Start [place]-3 for brain health, reduce impulsivity, and as adjunctive treatment for mood disorder, continue upon discharge given overall benefits. - Start B1 prophylaxis with 200 mg po for 5 days The patient agreed on the treatment plan, understood the risk, benefit, alternative treatment, potential consequence of no treatment, and gave informed consent. Estimated days: 4 Post hospital care: primary care provider, psychiatric provider Medications and Allergies Allergies Allergy/AdvReac Type Severity Reaction Status Date / Time amitriptyline Allergy Anaphylaxis Verified 12/18/20 02:11 doxepin Allergy Anaphylaxis Verified 12/18/20 02:10 aspirin AdvReac Bleeding Verified 12/18/20 02:12 codeine AdvReac Bleeding Verified 12/18/20 02:12 Home Medications Medication Instructions Recorded Confirmed Last Taken Type Acetaminophen [Tylenol] 650 mg PO Q8HR PRN 12/18/20 12/18/20 Unknown History Depakote ER 250 mg PO BID 12/18/20 12/18/20 Unknown History FLUoxetine HCL [PROzac] 40 mg PO BID 12/18/20 12/18/20 Unknown History LORazepam [Lorazepam] 1 mg PO DAILY 12/18/20 12/18/20 Unknown History Levothyroxine [Synthroid] 25 mcg PO QAM 12/18/20 12/18/20 Unknown History OLANZapine [Olanzapine] 10 mg PO HS 12/18/20 12/18/20 Unknown History Pantoprazole [Protonix] 40 mg PO QDAY 12/18/20 12/18/20 Unknown History Phenytoin Sodium Extended 100 mg PO TID 12/18/20 12/21/20 Unknown History Potassium Chloride [K-Dur] 20 meq PO QDAY 12/18/20 12/18/20 Unknown History Rosuvastatin Calcium [Crestor] 20 mg PO HS 12/18/20 12/18/20 Unknown History SUMAtriptan SUCCINATE [Imitrex] 100 mg PO DAILY PRN 12/18/20 12/18/20 Unknown History Ziprasidone [Geodon] 40 mg PO BID 12/18/20 12/18/20 Unknown History carvediloL [Coreg] 6.25 mg PO BID 12/18/20 12/18/20 Unknown History donepeziL [Aricept] 10 mg PO HS 12/18/20 12/18/20 Unknown History hydroCHLOROthiazide 12.5 mg PO DAILY 12/18/20 12/18/20 Unknown History [Hydrochlorothiazide] lisinopriL [Lisinopril] 20 mg PO DAILY 12/18/20 12/18/20 Unknown History Active Meds: Active Medications Acetaminophen (Acetaminophen 325 Mg Tab) 650 mg PO Q8H PRN PRN Reason: Pain, Moderate Atorvastatin Calcium (Atorvastatin 40 Mg Tab) 40 mg PO QHS [facility] Last Admin: 12/20/20 21:17 Dose: 40 mg Documented by: Carvedilol (Carvedilol 3.125 Mg Tab) 6.25 mg PO BID [facility] Last Admin: 12/20/20 21:10 Dose: 6.25 mg Documented by: Divalproex Sodium (Divalproex Er 250 Mg Tab) 250 mg PO TID [facility] Last Admin: 12/20/20 21:09 Dose: 250 mg Documented by: Donepezil HCl (Donepezil 10 Mg Tab) 10 mg PO HS [facility] Last Admin: 12/20/20 21:10 Dose: 10 mg Documented by: Fluoxetine HCl (Fluoxetine 20 Mg Cap) 40 mg PO BID [facility] Last Admin: 12/20/20 21:18 Dose: 40 mg Documented by: Hydrochlorothiazide (Hydrochlorothiazide 12.5 Mg Cap) 12.5 mg PO DAILY [facility] Last Admin: 12/20/20 09:37 Dose: 12.5 mg Documented by: Hydrophilic Ointment (Lip Therapy Vaseline) 1 applic TP DIRECT PRN PRN Reason: Dry Lips Last Admin: 12/20/20 21:07 Dose: 1 applic Documented by: Levothyroxine Sodium (Levothyroxine 25 Mcg Tab) 25 mcg PO QAM@0600 [facility] Last Admin: 12/21/20 05:33 Dose: 25 mcg Documented by: Lisinopril (Lisinopril 20 Mg Tab) 20 mg PO DAILY [facility] Last Admin: 12/20/20 09:38 Dose: Not Given Documented by: Lorazepam (Lorazepam 0.5 Mg Tab) 0.5 mg PO 1500 [facility] Last Admin: 12/20/20 14:27 Dose: 0.5 mg Documented by: Pantoprazole Sodium (Pantoprazole 40 Mg Tab) 40 mg PO QDAY [facility] Last Admin: 12/20/20 09:36 Dose: 40 mg Documented by: Phenytoin (Phenytoin 100 Mg Capsule.Er) 100 mg PO Q8HR [facility] Last Admin: 12/21/20 05:32 Dose: 100 mg Documented by: Potassium Chloride (Potassium Chloride Er 20 Meq Tab) 20 meq PO QDAY [facility] Last Admin: 12/20/20 09:36 Dose: 20 meq Documented by: Sumatriptan Succinate (Sumatriptan Succinate 50 Mg Tab) 100 mg PO DAILY PRN PRN Reason: Headache Ziprasidone (Ziprasidone 40 Mg Cap) 40 mg PO BID [facility] Last Admin: 12/20/20 21:17 Dose: 40 mg Documented by: Results - Results Labs/Vitals: Laboratory Last Values WBC 4.8 K/mm3 (4.5-11.0) 12/18/20 10:00 RBC 3.91 M/mm3 (3.65-5.03) 12/18/20 10:00 Hgb 13.0 gm/dl (10.1-14.3) 12/18/20 10:00 Hct 38.1 % (30.3-42.9) 12/18/20 10:00 MCV 98 fl (79-97) H 12/18/20 10:00 MCH 33 pg (28-32) H 12/18/20 10:00 MCHC 34 % (30-34) 12/18/20 10:00 RDW 13.1 % (13.2-15.2) L 12/18/20 10:00 Plt Count 152 K/mm3 (140-440) 12/18/20 10:00 Lymph % (Auto) 27.3 % (13.4-35.0) 12/18/20 10:00 [place] % (Auto) 15.2 % (0.0-7.3) H 12/18/20 10:00 Eos % (Auto) 2.5 % (0.0-4.3) 12/18/20 10:00 Baso % (Auto) 0.5 % (0.0-1.8) 12/18/20 10:00 Lymph # (Auto) 1.3 K/mm3 (1.2-5.4) 12/18/20 10:00 [place] # (Auto) 0.7 K/mm3 (0.0-0.8) 12/18/20 10:00 Eos # (Auto) 0.1 K/mm3 (0.0-0.4) 12/18/20 10:00 Baso # (Auto) 0.0 K/mm3 (0.0-0.1) 12/18/20 10:00 Seg Neutrophils % 54.5 % (40.0-70.0) 12/18/20 10:00 Seg Neutrophils # 2.6 K/mm3 (1.8-7.7) 12/18/20 10:00 Sodium 135 mmol/L (137-145) L 12/18/20 10:00 Potassium 3.6 mmol/L (3.6-5.0) 12/18/20 10:00 Chloride 97.6 mmol/L (98-107) L 12/18/20 10:00 Carbon Dioxide 26 mmol/L (22-30) 12/18/20 10:00 Anion Gap 15 mmol/L 12/18/20 10:00 BUN 12 mg/dL (7-17) 12/18/20 10:00 Creatinine 0.6 mg/dL (0.6-1.2) 12/18/20 10:00 Estimated GFR > 60 ml/min 12/18/20 10:00 BUN/Creatinine Ratio 20 % 12/18/20 10:00 Glucose 108 mg/dL (65-100) H 12/18/20 10:00 POC Glucose 97 mg/dL (70-105) 12/18/20 16:11 Hemoglobin A1c 5.0 % (4-6) 12/18/20 10:00 Calcium 10.1 mg/dL (8.4-10.2) 12/18/20 10:00 Total Bilirubin 0.30 mg/dL (0.1-1.2) 12/18/20 10:00 AST 18 units/L (5-40) 12/18/20 10:00 ALT 9 units/L (7-56) 12/18/20 10:00 Alkaline Phosphatase 83 units/L (35-129) 12/18/20 10:00 Total Protein 7.4 g/dL (6.3-8.2) 12/18/20 10:00 Albumin 4.2 g/dL (3.9-5) 12/18/20 10:00 Albumin/Globulin Ratio 1.3 % 12/18/20 10:00 Triglycerides 90 mg/dL (2-149) 12/18/20 10:00 Cholesterol 176 mg/dL (50-199) 12/18/20 10:00 LDL Cholesterol Direct 85 mg/dL (50-130) 12/18/20 10:00 HDL Cholesterol 88 mg/dL (40-59) H 12/18/20 10:00 Cholesterol/HDL Ratio 2.00 % 12/18/20 10:00 TSH 1.440 mlU/mL (0.270-4.200) 12/18/20 10:00 Phenytoin 27.7 ug/mL (10.0-20.0) H 12/20/20 16:48 Valproic Acid 10.7 ug/mL (50-100) L 12/18/20 10:00 Last Vital Signs Temp 98.8 F 12/21/20 07:37 Pulse 74 12/21/20 07:37 Resp 18 12/21/20 07:37 BP 147/76 12/21/20 07:37 Pulse Ox 96 12/21/20 07:37
[2020-12-21] MEDS: DIVALPROEX ER 500 MG TAB PO SCH ×2 (09:14→21:23)
[2020-12-21] MEDS: POTASSIUM CHLORIDE ER 20 MEQ TAB PO SCH (09:14)
[2020-12-21] MEDS: ZIPRASIDONE 40 MG CAP PO SCH ×2 (09:14→21:23)
[2020-12-21] MEDS: carvediloL 3.125 MG TAB PO SCH ×2 (09:14→21:24)
[2020-12-21] MEDS: FLUoxetine 20 MG CAP PO SCH ×2 (09:14→21:22)
[2020-12-21] MEDS: hydroCHLOROthiazide 12.5 MG CAP PO SCH (09:14)
[2020-12-21] MEDS: PANTOPRAZOLE 40 MG TAB PO SCH (09:14)
[2020-12-21] MEDS: LISINOPRIL 20 MG TAB PO SCH (09:15)
[2020-12-21] MEDS: DIVALPROEX ER 250 MG TAB PO SCH (09:42)
[2020-12-21] MEDS: LORazepam 0.5 MG TAB PO SCH (14:05)
[2020-12-21] MEDS: LIP THERAPY VASELINE TP PRN (21:21)
[2020-12-21] MEDS: DONEPEZIL 10 MG TAB PO SCH (21:23)
[2020-12-22] MEDS: LEVOTHYROXINE 25 MCG TAB PO SCH (05:51)
[2020-12-22] MEDS: PHENYTOIN 100 MG CAPSULE.ER PO SCH ×2 (05:51→15:12)
[2020-12-22 08:30] VITALS: BP 131/61
--- NOTE | 2020-12-22 10:11 | Discharge Summary ---
Providers - Providers Date of Admission: 12/18/20 04:14 Date of discharge: 12/22/20 Attending physician: LAZARO BENITES MD 12/18/20 02:15 Consult to Physician [CONS] Routine Comment: Consulting Provider: PRESTON PARIKH Physician Instructions: Reason For Exam: medical consult for psych Primary care physician: ANALYTICAL CONSULTANT Hospitalization Reason for admission: SI Admitting Diagnosis: F31.9 - BIPOLAR DISORDER, UNSPECIFIED Hospital course: The patient was provided inpatient psychiatric treatment with safe and supportive care, medication adjustment, adverse effect monitoring, medical evaluations, medical treatments, assessment and psycho-education. The patient's mood, cognition, behavior, moral support are improved and stabilized. St the time of discharge, the patient had no endangering behavior and no debilitating adverse effects. The patient agreed on potential consequences of no treatment and gave informed consent. 12/18 Fela Jeffries is a 70y/o female patient who was admitted into the tim- psych unit for suicidal thoughts and homicidal threats toward her daughter. During my evaluation with the patient, she is delusional. She is also labile. She endorses suicidal thoughts without a plan. She shows me healing cuts on both wrists she says where she attempted suicide about a month ago. The patient denies homicidal thoughts. She says her daughter and Kevin Peck are the reason she is admitted into the hospital. She says "she gets on the phone with him and he dominates my daughter's life." She is initially pleasant, but becomes angry talking about this, and says "I don't care if he's rich and famous." The patient then starts sobbing and says "I hurt my family. I won't do this again." She denies any illicit drug use, alcohol or nicotine. She says she has a history of bipolar and anxiety, although she didn't seem quite sure of it. 12/19 The patient was seen today. She appears to be delusional. She says she's doing good and slept good. The patient starts laughing out and says she spoke with her daughter yesterday who "talked too long." She says "my daughter is obsessed with Kevin Jose. The patient says "he's worth 200 million dollars." She then laughs again. She denies SI/HI or hallucinations. 12/20 Pt. is still delusional about her daughter being obsessed about Kevin Garcia. Sometimes pt. is sad, but on the most part happy today. Pt. is unsteady on her feet, but she made a few attempts to ambulate without help. Pt. reminded to call for help when she wants to stand up. She c/o cracked lips, Dr. Gonsales was here to see her and she said she will put in order for something for her lip s The patient was seen today. The patient is laughing and says she had a "wet night." She says "I was peeing all night." She then laughs out loud. The patient says she's have this problem and home. She denies SI/HI. She says "I'm happy to be alive." The patient denies hallucinations of any kind. 12/21 The patient was seen today. She has a bright affect and elevated mood. She says she's doing "wonderful and excellent." She denies SI/HI or hallucinations, but nursing staff reports the patient appeared to be interacting with the candelario. 12/22 The patient was seen today. She is in the dayroom interacting with the staff. Her affect is bright. She's pleasant and polite. She states to me as I greet her, "please let me go home today." When asking the patient how did she feel. She says "I feel good and I slept good." She denies SI/HI. She says "I promise I wouldn't do that. But I guess I said something I shouldn't have said." I called the daughter. Did not get anyone, but left a voice message. Disposition: 01 HOME / SELF CARE / HOMELESS Time spent for discharge: 35 Allergies/Adverse Reactions: Allergies amitriptyline Allergy (Verified 12/18/20 02:11) Anaphylaxis doxepin Allergy (Verified 12/18/20 02:10) Anaphylaxis aspirin Adverse Reaction (Verified 12/18/20 02:12) Bleeding codeine Adverse Reaction (Verified 12/18/20 02:12) Bleeding Vital Signs: Last Vital Signs Temp 99.0 F 12/22/20 07:39 Pulse 76 12/22/20 07:39 Resp 16 12/22/20 07:39 BP 131/61 12/22/20 07:39 Pulse Ox 97 12/22/20 07:39 Last Lab: Laboratory Last Values WBC 4.8 K/mm3 (4.5-11.0) 12/18/20 10:00 RBC 3.91 M/mm3 (3.65-5.03) 12/18/20 10:00 Hgb 13.0 gm/dl (10.1-14.3) 12/18/20 10:00 Hct 38.1 % (30.3-42.9) 12/18/20 10:00 MCV 98 fl (79-97) H 12/18/20 10:00 MCH 33 pg (28-32) H 12/18/20 10:00 MCHC 34 % (30-34) 12/18/20 10:00 RDW 13.1 % (13.2-15.2) L 12/18/20 10:00 Plt Count 152 K/mm3 (140-440) 12/18/20 10:00 Lymph % (Auto) 27.3 % (13.4-35.0) 12/18/20 10:00 Delta % (Auto) 15.2 % (0.0-7.3) H 12/18/20 10:00 Eos % (Auto) 2.5 % (0.0-4.3) 12/18/20 10:00 Baso % (Auto) 0.5 % (0.0-1.8) 12/18/20 10:00 Lymph # (Auto) 1.3 K/mm3 (1.2-5.4) 12/18/20 10:00 Delta # (Auto) 0.7 K/mm3 (0.0-0.8) 12/18/20 10:00 Eos # (Auto) 0.1 K/mm3 (0.0-0.4) 12/18/20 10:00 Baso # (Auto) 0.0 K/mm3 (0.0-0.1) 12/18/20 10:00 Seg Neutrophils % 54.5 % (40.0-70.0) 12/18/20 10:00 Seg Neutrophils # 2.6 K/mm3 (1.8-7.7) 12/18/20 10:00 Sodium 135 mmol/L (137-145) L 12/18/20 10:00 Potassium 3.6 mmol/L (3.6-5.0) 12/18/20 10:00 Chloride 97.6 mmol/L (98-107) L 12/18/20 10:00 Carbon Dioxide 26 mmol/L (22-30) 12/18/20 10:00 Anion Gap 15 mmol/L 12/18/20 10:00 BUN 12 mg/dL (7-17) 12/18/20 10:00 Creatinine 0.6 mg/dL (0.6-1.2) 12/18/20 10:00 Estimated GFR > 60 ml/min 12/18/20 10:00 BUN/Creatinine Ratio 20 % 12/18/20 10:00 Glucose 108 mg/dL (65-100) H 12/18/20 10:00 POC Glucose 97 mg/dL (70-105) 12/18/20 16:11 Hemoglobin A1c 5.0 % (4-6) 12/18/20 10:00 Calcium 10.1 mg/dL (8.4-10.2) 12/18/20 10:00 Total Bilirubin 0.30 mg/dL (0.1-1.2) 12/18/20 10:00 AST 18 units/L (5-40) 12/18/20 10:00 ALT 9 units/L (7-56) 12/18/20 10:00 Alkaline Phosphatase 83 units/L (35-129) 12/18/20 10:00 Total Protein 7.4 g/dL (6.3-8.2) 12/18/20 10:00 Albumin 4.2 g/dL (3.9-5) 12/18/20 10:00 Albumin/Globulin Ratio 1.3 % 12/18/20 10:00 Triglycerides 90 mg/dL (2-149) 12/18/20 10:00 Cholesterol 176 mg/dL (50-199) 12/18/20 10:00 LDL Cholesterol Direct 85 mg/dL (50-130) 12/18/20 10:00 HDL Cholesterol 88 mg/dL (40-59) H 12/18/20 10:00 Cholesterol/HDL Ratio 2.00 % 12/18/20 10:00 TSH 1.440 mlU/mL (0.270-4.200) 12/18/20 10:00 Phenytoin 27.7 ug/mL (10.0-20.0) H 12/20/20 16:48 Valproic Acid 44.6 ug/mL (50-100) L 12/21/20 16:23 Core Measure Documentation - Palliative Care Palliative Care/ Comfort Measures: Not Applicable - Core Measures Any of the following diagnoses?: none Exam - Constitutional Vitals: Temp Pulse Resp BP Pulse Ox 99.0 F 76 16 131/61 97 12/22/20 07:39 12/22/20 07:39 12/22/20 07:39 12/22/20 07:39 12/22/20 07:39 General appearance: Present: no acute distress - EENT Eyes: Present: PERRL, EOM intact ENT: hearing intact, clear oral mucosa - Neck Neck: Present: supple, normal ROM - Respiratory Respiratory effort: normal Plan Activity: advance as tolerated Weight Bearing Status: Weight Bear as Tolerated Care Plan Goals: Maintain good and stable mental health Plan of Treatment: The patient should be compliant with medications, not to use drugs, and not to drink alcohol. The patient understands that if suicidal ideas, homicidal ideas or any endangering feeling arise, the patient should seek assistance including, but not limited to crisis hotline, and emergency room. Assessment: Bipolar Disorder Follow up with: PRIMARY CARE, [Primary Care Provider] - 7 Days Prescriptions: LORazepam [Ativan] 0.5 mg PO 1500 #30 tablet Divalproex ER [Depakote ER] 500 mg PO BID #60 tablet Ziprasidone [Geodon] 40 mg PO BID #60 cap FLUoxetine HCL [PROzac] 40 mg PO BID #60 cap
[2020-12-22] MEDS: DIVALPROEX ER 500 MG TAB PO SCH (10:43)
[2020-12-22] MEDS: hydroCHLOROthiazide 12.5 MG CAP PO SCH (10:43)
[2020-12-22] MEDS: ZIPRASIDONE 40 MG CAP PO SCH (10:43)
[2020-12-22] MEDS: carvediloL 3.125 MG TAB PO SCH (10:44)
[2020-12-22] MEDS: POTASSIUM CHLORIDE ER 20 MEQ TAB PO SCH (10:44)
[2020-12-22] MEDS: PANTOPRAZOLE 40 MG TAB PO SCH (10:44)
[2020-12-22] MEDS: FLUoxetine 20 MG CAP PO SCH (10:44)
[2020-12-22] MEDS: LISINOPRIL 20 MG TAB PO SCH (10:45)
--- NOTE | 2020-12-22 10:47 | Event Note ---
Date: 12/22/20 Called the daughter a second time. This time I was able to reach her. Discussed the patient progress with her and medication changes. I informed her that her mother was clear from a psych standpoint to go home. She agrees with plan and states her brother can shrimp picker her mother this evening after he gets off work.
[2020-12-22] MEDS: LORazepam 0.5 MG TAB PO SCH (15:12)
== END 2020-12-22 17:30 | disposition home or self-care (01) | DRG 885 ==
LOC: UNDOADMIN 23:38 → 3A 23:38 → 5A 12-18 04:14
PROVIDERS: ADMIT Psychiatry & Neurology Psychiatry; ATTEND Psychiatry & Neurology Psychiatry
DX: F31.9 Bipolar disorder, unspecified (principal); Z68.41 Body mass index [BMI] 40.0-44.9, adult; I10 Essential (primary) hypertension; K21.9 Gastro-esophageal reflux disease without esophagitis; E66.01 Morbid (severe) obesity due to excess calories; Z88.6 Allergy status to analgesic agent; Z88.8 Allergy status to other drugs, medicaments and biological substances; F41.9 Anxiety disorder, unspecified; E78.5 Hyperlipidemia, unspecified; E03.9 Hypothyroidism, unspecified
CPT/HCPCS: 36415; 80053; 80061; 80164; 80185; 82962; 83036; 84443; 85025; G0378; A9270-GY